=== PATIENT | female | born 1995 | race Caucasian/White ===

== ENCOUNTER 2019-07-31 15:21 | Emergency (ER) | payer BC, SELFPAY ==
[2019-07-31 15:57] VITALS: BP 117/91; PULSE 82; RESP 20; TEMP 36.6; O2SAT 96
--- NOTE | 2019-07-31 17:08 | ED.GENADULT ---
HPI - General Adult General Chief complaint: Upper Respiratory Infection <Everton Tompkins PA-C - Last Filed: 07/31/19 17:13> Stated complaint: ST,Cough <Everton Tompkins PA-C - Last Filed: 07/31/19 17:13> Time Seen by Provider: 07/31/19 15:41 <Everton Tompkins PA-C - Last Filed: 07/31/19 17:13> Source: patient <Everton Tompkins PA-C - Last Filed: 07/31/19 17:13> Mode of arrival: ambulatory <Everton Tompkins PA-C - Last Filed: 07/31/19 17:13> Limitations: no limitations <Everton Tompkins PA-C - Last Filed: 07/31/19 17:13> History of Present Illness HPI narrative: Patient is a 24-year-old female who presents with 4 to 5 days duration of fever chills body aches noting aching pain throughout with nonproductive cough. Patient notes some emesis and loose stools. Patient notes she is able to tolerate p.o. intake. Patient has been taking [id number] medications with some improvement <Everton Tompkins PA-C - Last Filed: 07/31/19 17:13> Related Data Allergies/adverse reactions: Allergies Allergy/AdvReac Type Severity Reaction Status Date / Time Iodinated Contrast Media Allergy Severe Anaphylaxis Verified 07/31/19 16:05 Latex, Natural Rubber Allergy Severe Hives Verified 07/31/19 16:05 <Everton Tompkins PA-C - Last Filed: 07/31/19 17:13> Review of Systems Review of Systems: All systems reviewed & are unremarkable except as noted in HPI and below <Everton Tompkins PA-C - Last Filed: 07/31/19 17:13> PMFSH Past Medical History Medical History: Medical History Ovarian cyst <Everton Tompkins PA-C - Last Filed: 07/31/19 17:13> Social History Social History: Social History (Updated 07/31/19 @ 17:11 by Everton Tompkins PA-C) Substance use type: marijuana Gender identity (if verbalized by the patient): Female <Everton Tompkins PA-C - Last Filed: 07/31/19 17:13> Exam Narrative: Exam Narrative: GENERAL: Well-appearing, well-nourished, and in no acute distress. HEAD: Normocephalic, atraumatic. EYES: PERRLA and EOMI. ENT: Nares clear, no rhinorrhea or epistaxis. Mucous membranes moist. Oropharynx without tonsillar hypertrophy exudate or other lesions. Right TM slightly erythematous nonbulging. Left TM pearly valderrama nonbulging NECK: Supple. No adenopathy or masses. CHEST: Clear to auscultation. No respiratory distress. No wheezes rales or rhonchi HEART: Regular rate and rhythm. No murmur heard. EXTREMITIES: Normal range of motion. No edema. SKIN: Warm, dry, no rash. NEURO: No focal deficits. Alert and oriented x3. Cranial nerves II through XII grossly intact PSYCH: Normal mood and affect. <PARI Gutierrez Last Filed: 07/31/19 17:13> Course Course Emergency Course: Patient in the room in no distress aware of case findings treatment plan and diagnosis <PARI Gutierrez Last Filed: 07/31/19 17:13> Vital Signs Vital signs: Vital Signs Temperature 36.6 C 07/31/19 15:57 Pulse Rate 82 07/31/19 15:57 Respiratory Rate 20 07/31/19 15:57 Blood Pressure 117/91 H 07/31/19 15:57 Pulse Oximetry 96 07/31/19 15:57 Temperature 36.6 C 07/31/19 15:57 Pulse Rate 82 07/31/19 15:57 Respiratory Rate 20 07/31/19 15:57 Blood Pressure 117/91 H 07/31/19 15:57 Pulse Oximetry 96 07/31/19 15:57 <PARI Gutierrez Last Filed: 07/31/19 17:13> Vital Signs Temperature 36.6 C 07/31/19 15:57 Pulse Rate 82 07/31/19 15:57 Respiratory Rate 20 07/31/19 15:57 Blood Pressure 117/91 H 07/31/19 15:57 Pulse Oximetry 96 07/31/19 15:57 Temperature 36.6 C 07/31/19 15:57 Pulse Rate 82 07/31/19 15:57 Respiratory Rate 20 07/31/19 15:57 Blood Pressure 117/91 H 07/31/19 15:57 Pulse Oximetry 96 07/31/19 15:57 <Yelena Bee MD - Last Filed: 07/31/19 17:48> Medical Decision Making MDM Narrative Medical decis
== END 2019-07-31 17:18 | disposition home or self-care (01) ==
PROVIDERS: Emergency Provider Emergency Medicine
DX: J10.1 Influenza due to other identified influenza virus with other respiratory manifestations (principal)
CPT/HCPCS: 87804; 99283

== ENCOUNTER 2021-05-11 13:10 | Observation (INO) | payer BC, MEDICAID, SELFPAY ==
[2021-05-11] VITALS (33 sets, daily range): BP systolic 113; BP diastolic 59; PULSE 67–146; TEMP 36.6; O2SAT 91–100; BMI 26.7
--- NOTE | ~2021-05-11 | US_ITS ---
EXAMINATION: 1. US OB limited 2. US OB transvaginal DATE: 05/12/2021 08:59 INDICATION: labor. TECHNIQUE: Real-time ultrasound of the pelvis was performed. COMPARISON: None. FINDINGS: There is a single fetus in vertex presentation. The placenta is right posterior. heart rate is 137 beats per minute (bpm). The amniotic fluid volume is subjectively normal. The cervical length is 2.5 cm on transvaginal images. No funneling. IMPRESSION: 1. Single living fetus in vertex presentation. 2. Cervical length of 2.5 cm, which is normal. Reviewed, dictated and finalized at location A. O TECH IMPRESSION: 1. Single living fetus in vertex presentation. 2. Cervical length of 2.5 cm, which is normal.
--- NOTE | 2021-05-11 10:45 | OBADM ---
This patient, Janet Pham, admitted to the OB room OB Post 113 for observation. Patient/family oriented to hospital policies and general routines including ID bracelet, bed and alarms, visiting hours, pain management, procedures, bathroom and other care routines, personal items, smoking policy, room service/diet, and visiting hours. Patient/Family are encouraged to report perceived risks to care and to ask questions if they do not understand what they are told or what they should do.
[2021-05-11] MEDS: TERBUTALINE SULFATE 1 MG/ML VIAL 0.25 MG SUB-Q ×2 (13:30→14:56)
[2021-05-11] MEDS: BETAMETHASONE SOD PHOS/ACETATE 30 MG/5 ML VIAL 12 MG IM (14:55)
[2021-05-11] MEDS: NIFEdipine 10 MG CAPSULE 20 MG PO (17:13)
[2021-05-11] MEDS: ACETAMINOPHEN 500 MG TABLET 1000 MG PO (17:23)
--- NOTE | 2021-05-11 21:02 | PM.IMHP ---
H&P: HPI History of Present Illness Date/Time: 05/11/21 21:02 Chief Complaint: labor Narrative: 26 yo at 34w6d who presents with contractions. Pt states she started having contractions early this morning. She states they persisted all day. She denies any change in pelvic pressure, vaginal bleeding or leakage of fluid. She endorses good movement. Review of Systems Cardiovascular: Cardiovascular: Denies chest pain, Denies leg edema, Denies palpitations, Denies dyspnea and Denies dyspnea on exertion Respiratory: Respiratory: Denies cough, Denies dyspnea and Denies dyspnea on exertion Gastrointestinal: Gastrointestinal: Denies abdominal pain, Denies constipation, Denies diarrhea, Denies nausea and Denies vomiting Genitourinary: Genitourinary: Denies hematuria, Denies urinary frequency, Denies dysuria, Denies pelvic pain, Denies urinary incontinence and Denies vaginal discharge Neurologic: Reports system reviewed and no additional complaints, except as documented Psychiatric: Psychiatric: Reports no additional psychiatric complaints Endocrine: Endocrine: Denies palpitations PMFSH Past Medical History Medical History (Updated 05/12/21 @ 10:41 by Lobito Davey MD) Ovarian cyst Social History Social History (Updated 07/31/19 @ 17:11 by Everton Tompkins PA-C) Substance use type: marijuana Gender identity (if verbalized by the patient): Female Meds Home Medications and Allergies Home Medications Medication Instructions Recorded Confirmed Type acetaminophen [Tylenol Extra 500 mg PO Q6H PRN #30 tablet 06/14/19 Rx Strength] hydrocodone-acetaminophen [[place]] 1 tablet PO Q8H PRN #14 tablet 06/14/19 Rx ibuprofen 600 mg PO Q6H PRN #30 tablet 06/14/19 Rx ondansetron 4 mg PO Q6H PRN #7 tablet 07/31/19 Rx nifedipine 20 mg PO Q6H PRN #60 cap 05/12/21 Rx Allergies Allergy/AdvReac Type Severity Reaction Status Date / Time Iodinated Contrast Media Allergy Severe Anaphylaxis Verified 07/31/19 16:05 Latex, Natural Rubber Allergy Severe Hives Verified 07/31/19 16:05 Vital Signs Vital Signs - 24 hr 05/11/21 14:40 05/11/21 14:45 05/11/21 14:50 Pulse Oximetry 100 100 100 05/11/21 14:55 05/11/21 15:00 05/11/21 15:02 Pulse Oximetry 100 100 100 05/11/21 15:07 05/11/21 15:12 05/11/21 15:17 Pulse Oximetry 100 100 100 05/11/21 15:20 05/11/21 15:24 05/11/21 15:25 Pulse Oximetry 94 100 91 05/11/21 15:30 05/11/21 15:35 05/11/21 15:40 Pulse Oximetry 100 100 100 05/11/21 15:45 05/11/21 15:50 05/11/21 15:55 Pulse Oximetry 100 100 100 05/11/21 16:00 05/11/21 16:05 05/11/21 16:10 Pulse Oximetry 100 100 100 05/11/21 16:15 05/11/21 16:20 05/11/21 16:25 Pulse Oximetry 100 100 100 05/11/21 16:30 05/11/21 16:35 05/11/21 16:40 Pulse Oximetry 99 100 100 05/11/21 16:45 05/11/21 16:50 05/11/21 16:55 Pulse Oximetry 99 100 100 05/11/21 17:00 Pulse Oximetry 100 Exam Const: General: no acute distress Eyes: EOM: EOMs intact bilaterally Neck: Neck: supple Thyroid: thyroid normal Chest: Breast/axilla inspection: normal inspection of the breasts Breast/axilla palpation: normal palpation of the breasts, normal palpation of the axillae and no axillary lymphadenopathy Resp: Effort & Inspection: normal respiratory effort Auscultation: clear to auscultation bilaterally Cardio: Rate: regular rate Rhythm: regular rhythm GI: Inspection: non-distended and other (Gravid) GI Palp: Yes Soft to palpation, No Tenderness to palpation present (GI) and No Guarding due to palpation present (GI) Auscultation: normal bowel sounds : General: Yes bladder normal to palpation External Female Exam: normal external appearance OB/external & speculum: external exam normal; no bleeding, no and vaginal bleeding Manual OB Exam: dilated 1 cm Skin: General skin exam: normal color and no rashes or lesions noted Neuro: Cognition (Neuro): normal
[2021-05-12] MEDS: NIFEdipine 10 MG CAPSULE 20 MG PO ×2 (08:06→11:34)
[2021-05-12 08:08] VITALS: BP 116/64; PULSE 59
[2021-05-12] MEDS: ACETAMINOPHEN 500 MG TABLET 1000 MG PO (09:43)
[2021-05-12] MEDS: TERBUTALINE SULFATE 1 MG/ML VIAL 0.25 MG SUB-Q (10:20)
--- NOTE | 2021-05-12 11:00 | PM.OBDSVD ---
DS: Admitting Diagnosis Discharge Date 05/12/21 Admitting Diagnosis labor OB - DS: Summary Time Spent with Patient Time attestation: Total time spent providing and/or coordinating discharge services: Exam Const: General: no acute distress Eyes: EOM: EOMs intact bilaterally Neck: Neck: supple Thyroid: thyroid normal Chest: Breast/axilla inspection: normal inspection of the breasts Breast/axilla palpation: normal palpation of the breasts, normal palpation of the axillae and no axillary lymphadenopathy Resp: Effort & Inspection: normal respiratory effort Auscultation: clear to auscultation bilaterally Cardio: Rate: regular rate Rhythm: regular rhythm GI: Inspection: non-distended GI Palp: Yes Soft to palpation, No Tenderness to palpation present (GI) and No Guarding due to palpation present (GI) Auscultation: normal bowel sounds : OB/external & speculum: external exam normal; no bleeding and vaginal bleeding Manual OB Exam: dilated 1 cm Skin: General skin exam: normal color and no rashes or lesions noted Neuro: Cognition (Neuro): normal cognition Speech: normal speech Extrem: General: normal to inspection and no edema Psych: Mental Status: mental status grossly normal Affect: normal affect Discharge Plan Discharge Discharging Clinician: Lobito Davey Anticipated Discharge Date/Time: 05/12/21 11:02 Patient Disposition: Home, Self-Care Activity: as tolerated and pelvic rest Diet: regular Patient Instructions: Antibiotic Form, Labor (ED), Labor (DC) Stand Alone Forms: General Discharge Information Follow-up/Referrals: Lobito Davey MD [Physician] - 1 Week Discharge Medications: New nifedipine 20 mg Capsule 20 mg PO Q6H PRN (Reason: Cramps) Qty: 60 RF: 0 No Action hydrocodone-acetaminophen [[place]] 5-325 mg tablet 1 tablet PO Q8H PRN (Reason: pain) Qty: 14 RF: 0 acetaminophen [Tylenol Extra Strength] 500 mg tablet 500 mg PO Q6H PRN (Reason: pain) Qty: 30 RF: 0 ibuprofen 600 mg tablet 600 mg PO Q6H PRN (Reason: pain) Qty: 30 RF: 0 ondansetron 4 mg tablet,disintegrating 4 mg PO Q6H PRN (Reason: nausea and vomiting) Qty: 7 RF: 0 Date of admission: 05/11/21 13:10 Primary Care Provider: PHYSICIAN,INSURANCE SPECIALIST Admitting Provider: Lobito Davey Attending physician on admission: Lobito Davey
--- NOTE | 2021-05-12 11:03 | PM.DS ---
DS: Admitting Diagnosis Discharge Date 05/12/21 Admitting Diagnosis Labor DS: Summary Hospital Course Reason for hospitalization: labor Hospital Course: 26 yo G1 at 35w6d presented for labor. Pt was having regular contractions. Cvx found to be 1 cm dilated. Pt received terbutaline x 2 and started on procardia PRN for tocolysis. Pt received BTMS for lung maturity. Pt remained stable overnight and states her contractions improved. pelvic US was performed and CL was found to be 2.5 cm. Time Spent with Patient Time attestation: Total time spent providing and/or coordinating discharge services: Time spent: Less than 30 minutes Exam Const: General: no acute distress Eyes: EOM: EOMs intact bilaterally Neck: Neck: supple Thyroid: thyroid normal Chest: Breast/axilla inspection: normal inspection of the breasts Breast/axilla palpation: normal palpation of the breasts, normal palpation of the axillae and no axillary lymphadenopathy Resp: Effort & Inspection: normal respiratory effort Auscultation: clear to auscultation bilaterally Cardio: Rate: regular rate Rhythm: regular rhythm GI: Inspection: non-distended GI Palp: Yes Soft to palpation, No Tenderness to palpation present (GI) and No Guarding due to palpation present (GI) Auscultation: normal bowel sounds : OB/external & speculum: external exam normal; No vaginal bleeding Manual OB Exam: dilated 1 cm Skin: General skin exam: normal color and no rashes or lesions noted Neuro: Cognition (Neuro): normal cognition Speech: normal speech Extrem: General: normal to inspection and no edema Psych: Mental Status: mental status grossly normal Affect: normal affect Discharge Plan Discharge Discharging Clinician: Lobito Davey Anticipated Discharge Date/Time: 05/12/21 11:02 Patient Disposition: Home, Self-Care Activity: as tolerated and pelvic rest Diet: regular Patient Instructions: Antibiotic Form, Labor (ED), Labor (DC) Stand Alone Forms: General Discharge Information Follow-up/Referrals: Lobito Davey MD [Physician] - 1 Week Discharge Medications: New nifedipine 20 mg Capsule 20 mg PO Q6H PRN (Reason: Cramps) Qty: 60 RF: 0 Continued acetaminophen [Tylenol Extra Strength] 500 mg tablet 500 mg PO Q6H PRN (Reason: pain) Qty: 30 RF: 0 ibuprofen 600 mg tablet 600 mg PO Q6H PRN (Reason: pain) Qty: 30 RF: 0 ondansetron 4 mg tablet,disintegrating 4 mg PO Q6H PRN (Reason: nausea and vomiting) Qty: 7 RF: 0 Discontinued hydrocodone-acetaminophen [[place]] 5-325 mg tablet 1 tablet PO Q8H PRN (Reason: pain) Qty: 14 RF: 0 Date of admission: 05/11/21 13:10 Primary Care Provider: PHYSICIAN,PRODUCT DEVELOPMENT WORKER Admitting Provider: Lobito Davey Attending physician on admission: Lobito Davey Condition: Stable
[2021-05-12] MEDS: FLUCONAZOLE 150 MG TABLET PO (12:02)
[2021-05-12] MEDS: BETAMETHASONE SOD PHOS/ACETATE 30 MG/5 ML VIAL 12 MG IM (14:31)
== END 2021-05-12 14:32 | disposition home or self-care (01) ==
PROVIDERS: Admitting Provider Student in an Organized Health Care Education/Training Program; Visit Provider Student in an Organized Health Care Education/Training Program
DX: O60.03 Preterm labor without delivery, third trimester (principal); Z3A.34 34 weeks gestation of pregnancy
CPT/HCPCS: 76815; 76817; 96372; A9270; G0378; G0379; J0702; J3105

== ENCOUNTER 2021-05-15 22:51 | Observation (INO) | payer BC, SELFPAY ==
[2021-05-15 23:06] VITALS: BP 116/69; PULSE 92
[2021-05-15 23:15] VITALS: BP 120/69; PULSE 93
[2021-05-15 23:30] VITALS: BP 121/66; PULSE 87
[2021-05-15 23:46] VITALS: BP 138/89; PULSE 85
[2021-05-16 00:01] VITALS: BP 104/75; PULSE 83
[2021-05-16 00:16] VITALS: BP 121/70; PULSE 94
[2021-05-16 00:31] VITALS: BP 126/62; PULSE 88
[2021-05-16 00:46] VITALS: BP 125/70; PULSE 86
[2021-05-16 02:01] VITALS: BMI 27.3
--- NOTE | 2021-05-16 02:02 | OBADM ---
This patient, Janet Pham, admitted to the OB room Labor/Delivery/Recovery 105 for observation. Patient/family oriented to hospital policies and general routines including ID bracelet, bed and alarms, visiting hours, pain management, procedures, bathroom and other care routines, personal items, smoking policy, room service/diet, and visiting hours. Patient/Family are encouraged to report perceived risks to care and to ask questions if they do not understand what they are told or what they should do.
--- NOTE | 2021-06-03 16:59 | PM.OBTRLD ---
OB - Triage/Final Diagnosis Visit Information Comments/Additional reasons for admission: I have assessed the risk for this patient, Janet Pham, and determined that she would benefit from observation care. Final Diagnosis (1) False labor: Code(s): O47.9 - False labor, unspecified Status: Acute
== END 2021-05-16 01:55 | disposition home or self-care (01) ==
PROVIDERS: Admitting Provider Obstetrics & Gynecology; Visit Provider Obstetrics & Gynecology
DX: O47.03 False labor before 37 completed weeks of gestation, third trimester (principal); Z3A.35 35 weeks gestation of pregnancy
CPT/HCPCS: G0378; G0379

== ENCOUNTER 2021-06-08 11:00 | Outpatient (RCR) | payer BC, SELFPAY ==
[2021-05-18 13:02] VITALS: BP 113/87; PULSE 69
[2021-05-21 12:04] VITALS: BP 118/69; PULSE 78
[2021-05-25 15:14] VITALS: BP 123/73; PULSE 85
[2021-06-01 12:02] VITALS: BP 120/55; PULSE 59
[2021-06-04 11:46] VITALS: BP 115/69; PULSE 70
[2021-06-08 12:03] VITALS: BP 121/62; PULSE 64
== END 2021-07-03 20:34 | disposition home or self-care (01) ==
LOC: ANHOBOP 11:00
PROVIDERS: Visit Provider Student in an Organized Health Care Education/Training Program
DX: O36.5930 Maternal care for other known or suspected poor fetal growth, third trimester, not applicable or unspecified (principal); Z3A.35 35 weeks gestation of pregnancy; Z3A.36 36 weeks gestation of pregnancy; Z3A.37 37 weeks gestation of pregnancy; Z3A.38 38 weeks gestation of pregnancy
CPT/HCPCS: 59025

== ENCOUNTER 2021-06-10 18:38 | Inpatient (IN) | payer BC, MEDICAID, SELFPAY ==
[2021-06-10] VITALS (13 sets, daily range): BP systolic 107–125; BP diastolic 58–82; PULSE 57–83; TEMP 36.8; BMI 26.2
--- NOTE | 2021-06-10 19:12 | LDADM ---
This patient, Janet Pham, was admitted to Labor/Delivery/Recovery 107 on 06/10/21 at 18:38. Plans for labor, pain management and were discussed with patient. Patient/family oriented to hospital policies and general routines including ID bracelet, bed and alarms, visiting hours, pain management, procedures, bathroom and other care routines, personal items, smoking policy, room service/diet and guest tray routines, security routines, and visiting hours. Patient/Family are encouraged to report perceived risks to care and to ask questions if they do not understand what they are told or what they should do. See OBIX for further documentation.
[2021-06-10] MEDS: DINOPROSTONE 10 MG VAG INSERT VAGINAL (20:01)
[2021-06-10 20:05] LABS: Basophils Percent Auto 0.3 % (0.2-1.2); Eosinophils Absolute Auto 0.1 K/mm3 (0-0.3); Hematocrit 33.5 % (37.0-47.0); Hemoglobin 11.4 g/dL (12.0-15.0); Immature Granulocyte Absolute 0.04 K/mm3 (0.00-0.031); Immature Granulocyte Percent A 0.4 % (0-0.5); Lymphocytes Absolute Auto 2.25 K/mm3 (0.9-3.2); Lymphocytes Percent Auto 24.5 % (18.3-44.2); Mean Corpuscular Hemoglobin 29.5 pg (26-34); Mean Corpuscular Volume 86.8 fl (80-100); Mean Platelet Volume 11.6 fl (7.4-10.4); Monocytes Absolute Auto 0.4 K/mm3 (0.1-0.6); Monocytes Percent Auto 4.8 % (2.6-8.5); Neutrophils Absolute Auto 6.3 K/mm3 (1.3-6.7); Platelet Count Result 232 k/mm3 (150-375); Red Blood Count 3.86 M/mm3 (4.2-5.4); Red Cell Distribution Width 12.6 % (11.5-14.5); White Blood Count 9.2 K/mm3 (4.5-10.0)
--- NOTE | 2021-06-10 22:32 | WPDANESEPP ---
Anes - Eval Pre Procedure Procedure: labor epidural Date/Time: 06/10/21 22:32 Surgeon: moira Pre Op Diagnosis: IOL Patient Data Age: 26 Gender: F Height: 1.6 m Weight: 67.1 kg Last Vital Signs Pulse 63 06/10/21 22:16 BP 113/73 06/10/21 22:16 Allergies Allergy/AdvReac Type Severity Reaction Status Date / Time Iodinated Contrast Media Allergy Severe Anaphylaxis Verified 07/31/19 16:05 Latex, Natural Rubber Allergy Severe Hives Verified 07/31/19 16:05 Home Medications Medication Instructions Recorded Confirmed Type acetaminophen [Tylenol Extra 500 mg PO Q6H PRN #30 tablet 06/14/19 05/21/21 Rx Strength] ondansetron 4 mg PO Q6H PRN #7 tablet 07/31/19 06/10/21 Rx PNV cmb#95-ferrous fumarate-FA 1 tablet PO DAILY 05/21/21 05/21/21 History [] Laboratory Tests 06/10/21 06/10/21 06/10/21 19:58 19:58 19:58 WBC 9.2 K/mm3 K/mm3 (4.5-10.0) RBC 3.86 M/mm3 L M/mm3 (4.2-5.4) Hgb 11.4 g/dL L g/dL (12.0-15.0) Hct 33.5 % L % (37.0-47.0) MCV 86.8 fl fl (80-100) MCH 29.5 pg pg (26-34) MCHC 34.0 g/dl g/dl (32-36) RDW 12.6 % % (11.5-14.5) Plt Count 232 k/mm3 k/mm3 (150-375) MPV 11.6 fl H fl (7.4-10.4) Immature Gran % (Auto) 0.4 % % (0-0.5) Neut % (Auto) 69.0 % % (45.5-73.1) Lymph % (Auto) 24.5 % % (18.3-44.2) [place] % (Auto) 4.8 % % (2.6-8.5) Eos % (Auto) 1.0 % % (0-4.4) Baso % (Auto) 0.3 % % (0.2-1.2) Lymph # (Auto) 2.25 K/mm3 K/mm3 (0.9-3.2) [place] # (Auto) 0.4 K/mm3 K/mm3 (0.1-0.6) Eos # (Auto) 0.1 K/mm3 K/mm3 (0-0.3) Baso # (Auto) 0.0 K/mm3 K/mm3 (0.0-0.1) Abs Immat Gran (auto) 0.04 K/mm3 H K/mm3 (0.00-0.031) Absolute Neuts (auto) 6.3 K/mm3 K/mm3 (1.3-6.7) Absolute Nucleated RBC 0.0 K/mm3 K/mm3 (0.0-0.012) Nucleated RBC % 0.0 % % (0.0-0.2) RPR Pending Blood Type A Positive Antibody Screen Negative Patient hx anesthesia problems: none Family hx anesthesia problems: none Results Review: All pre-operative results and documents have been reviewed as part of the pre-operative evaluation. [facility] Past Medical History Medical History (Updated 06/03/21 @ 16:59 by Tanner Castro MD) Ovarian cyst Family History Family History (Updated 05/25/21 @ 14:46 by Jesús Mathew RN) Sibling Deafness in left ear Grandparent High cholesterol Heart disease Hypertension Diabetes mellitus Social History Social History (Updated 07/31/19 @ 17:11 by Everton Tompkins PA-C) Smoking status: Never smoker Substance use: never Substance use type: marijuana Gender identity (if verbalized by the patient): Female Spiritual care concerns: No Exam Day of Procedure 06/10/21 22:32
[2021-06-11] VITALS (91 sets, daily range): BP systolic 95–150; BP diastolic 49–91; PULSE 53–173; RESP 16–18; TEMP 36.6–37.3; O2SAT 75–100
[2021-06-11 06:32] LABS: Rapid Plasma Reagin Non-Reactive (NonReactive)
[2021-06-11 06:59] LABS: Amphetamine Screen Urine Negative (Negative); Barbiturate Screen Urine Negative (Negative); Benzodiazepines Screen Urine Negative (Negative); Cannabinoid Screen Urine Negative (Negative); Cocaine Screen Urine Negative (Negative); Methadone Screen Urine Negative (Negative); Opiate Screen Urine Negative (Negative); Phencyclidine Screen Urine Negative (Negative)
[2021-06-11] MEDS: ONDANSETRON INJ 4 MG/2 ML VIAL IV PUSH (07:04)
[2021-06-11] MEDS: LACTATED RINGERS 1,000 ML 125 ML IV CONT ×2 (07:39→08:13)
--- NOTE | 2021-06-11 07:42 | PM.IMHP ---
H&P: HPI History of Present Illness Date/Time: 06/11/21 07:42 Chief Complaint: Intrauterine at term IUGR Narrative: 26 yo G1 at 39w1d who presents for IOL for IUGR. Pt was noted to have an EFW of 6% at 33w. Interval growth scans showed continued IUGR. The fetus was noted to have normal UA dopplers and testing. Recent US showed EFW of 3%. Decision was made to proceed with IOL. The remainder of her has been uncomplicated. Review of Systems Cardiovascular: Cardiovascular: Denies chest pain, Denies leg edema, Denies palpitations, Denies dyspnea and Denies dyspnea on exertion Respiratory: Respiratory: Denies cough, Denies dyspnea and Denies dyspnea on exertion Gastrointestinal: Gastrointestinal: Denies abdominal pain, Denies constipation, Denies diarrhea, Denies nausea and Denies vomiting Genitourinary: Genitourinary: Denies hematuria, Denies urinary frequency, Denies dysuria, Denies pelvic pain, Denies urinary incontinence and Denies vaginal discharge Neurologic: Reports system reviewed and no additional complaints, except as documented Psychiatric: Psychiatric: Reports no additional psychiatric complaints Endocrine: Endocrine: Denies palpitations PMFSH Past Medical History Medical History (Updated 06/11/21 @ 07:44 by Lobito Davey MD) Ovarian cyst Family History Family History (Updated 05/25/21 @ 14:46 by Jesús Mathew RN) Sibling Deafness in left ear Grandparent High cholesterol Heart disease Hypertension Diabetes mellitus Social History Social History (Updated 07/31/19 @ 17:11 by Everton Tompkins PA-C) Smoking status: Never smoker Substance use: never Substance use type: marijuana Gender identity (if verbalized by the patient): Female Spiritual care concerns: No Meds Home Medications and Allergies Home Medications Medication Instructions Recorded Confirmed Type acetaminophen [Tylenol Extra 500 mg PO Q6H PRN #30 tablet 06/14/19 06/10/21 Rx Strength] ondansetron 4 mg PO Q6H PRN #7 tablet 07/31/19 06/10/21 Rx PNV cmb#95-ferrous fumarate-FA 1 tablet PO DAILY 05/21/21 06/10/21 History [] Allergies Allergy/AdvReac Type Severity Reaction Status Date / Time Iodinated Contrast Media Allergy Severe Anaphylaxis Verified 07/31/19 16:05 Latex, Natural Rubber Allergy Severe Hives Verified 07/31/19 16:05 Vital Signs Vital Signs - 24 hr 06/10/21 19:06 06/10/21 19:16 06/10/21 19:31 Temperature Pulse Rate 60 69 83 Blood Pressure 119/71 116/64 111/71 Pulse Oximetry 06/10/21 20:00 06/10/21 20:16 06/10/21 20:31 Temperature 36.8 C Pulse Rate 57 L 62 Blood Pressure 125/78 123/82 Pulse Oximetry 06/10/21 20:46 06/10/21 21:01 06/10/21 21:16 Temperature Pulse Rate 62 63 71 Blood Pressure 125/79 119/70 107/58 L Pulse Oximetry 06/10/21 21:31 06/10/21 21:46 06/10/21 22:01 Temperature Pulse Rate 74 59 L 60 Blood Pressure 112/73 125/81 116/73 Pulse Oximetry 06/10/21 22:16 06/11/21 02:30 06/11/21 02:35 Temperature Pulse Rate 63 62 Blood Pressure 113/73 111/80 Pulse Oximetry 98 98 06/11/21 02:40 06/11/21 02:45 06/11/21 02:50 Temperature Pulse Rate Blood Pressure Pulse Oximetry 98 100 99 06/11/21 02:55 06/11/21 02:59 06/11/21 03:01 Temperature Pulse Rate 55 L Blood Pressure 103/54 L Pulse Oximetry 99 98 06/11/21 03:04 06/11/21 03:09 06/11/21 03:14 Temperature Pulse Rate Blood Pressure Pulse Oximetry 99 99 99 06/11/21 03:19 06/11/21 03:24 06/11/21 03:29 Temperature Pulse Rate Blood Pressure Pulse Oximetry 99 99 99 06/11/21 03:31 06/11/21 03:34 06/11/21 03:39 Temperature Pulse Rate 59 L Blood Pressure 114/51 L Pulse Oximetry 99 99 06/11/21 03:44 06/11/21 03:49 06/11/21 03:54 Temperature Pulse Rate Blood Pressure Pulse Oximetry 99 100 99 06/11/21 04:38 06/11/21 05:01 06/11/21 05:31 [place]
[2021-06-11] MEDS: OXYTOCIN 30 UNITS/NS 500 ML 30 UNITS/500 ML BAG 125 UNITS IV CONT ×2 (09:06→11:37)
--- NOTE | 2021-06-11 11:12 | PM.OBPRVD ---
OB - Delivery Note Procedure Procedure: Patient pushed for a spontaneous vaginal delivery. Fetus was noted to have a nuchal x1 that was delivered through. The fetus was delivered atraumatically and placed on the maternal abdomen. The cord was clamped and cut after 1 minute of life. The cord was double clamped and cut and a segment of cord was collected for cord gases. Cord blood was collected for blood type and Coomb's testing. The placenta delivered spontaneously and was noted to be intact. The perineum was inspected and there was a small right sided vaginal laceration. The laceration was repaired with 3-0 vicryl with a single interrupted stitch. The uterus was firm and good hemostasis was noted. The patient and fetus were stable in the delivery room. events: Labor Induction (for IUGR) Intrapartal events: None Induction method: per misoprostol protocol Delivery augmentation: rupture of membranes and pitocin Delivery monitor: external FHT Route of delivery: Episiotomy description: None Laceration Description: Vaginal - 1st Degree Delivery repair: vicryl Specimen: No Quantitative Blood Loss (ml): 200 Anesthesia type: Epidural Disposition: floor () Complications: No immediate complications Baby Date of : 06/11/[birth year] Time of : 11:02 Weeks of gestation at delivery: 39 Infant gender: Male Weight (pounds): 6 Weight (ounces): 7 presentation: vertex position: Right Occiput Anterior Placenta delivery description: Spontaneous cord vessel description: 3 Vessels and Nuchal Cord score one minute: 8 score five minutes: 9
[2021-06-11] MEDS: IBUPROFEN 600 MG TABLET PO ×2 (14:12→20:15)
[2021-06-11] MEDS: WITCH HAZEL 40 PADS 1 PAD TOPICAL (14:13)
[2021-06-11] MEDS: BENZOCAINE 20% AER SPR (*SP) 56 GM CAN 1 SPRAY TOPICAL (14:13)
--- NOTE | 2021-06-11 14:27 | PC.NURSE ---
Patient transferred to post room #282 via wheel chair. Support person present. Oriented to unit, room, information board, rooming in, admission packet and security measures. Patient verbalizes understanding.
[2021-06-11] MEDS: ACETAMINOPHEN 325 MG TABLET 650 MG PO (20:15)
[2021-06-12] MEDS: ACETAMINOPHEN 325 MG TABLET 650 MG PO ×2 (02:02→08:27)
[2021-06-12] MEDS: IBUPROFEN 600 MG TABLET PO ×2 (02:02→08:28)
[2021-06-12 04:10] VITALS: BP 120/74; PULSE 62; RESP 16; TEMP 36.7; O2SAT 100
[2021-06-12 04:28] LABS: Hematocrit 29.4 % (37.0-47.0); Hemoglobin 9.7 g/dL (12.0-15.0)
[2021-06-12 07:30] VITALS: BP 109/70; PULSE 62; RESP 16; TEMP 36.9; O2SAT 100
--- NOTE | 2021-06-12 07:43 | PM.OBDSVD ---
DS: Admitting Diagnosis Discharge Date 06/12/21 Admitting Diagnosis intrauterine at term intrauterine growth restriction OB - DS: Summary OB Procedures : None OB Procedures Intrapartum: Spontaneous Vag Delivery OB Procedures: : None Status at Discharge Functional status at discharge: independent ambulation Overall status at discharge: patient is back to baseline Time Spent with Patient Time attestation: Total time spent providing and/or coordinating discharge services: Time spent: Less than 30 minutes Exam Const: General: comfortable and no acute distress Resp: Effort & Inspection: normal respiratory effort Auscultation: clear to auscultation bilaterally Cardio: Rate: regular rate GI: GI Palp: Yes Soft to palpation Auscultation: normal bowel sounds Other: Fundus firm below umbilicus Psych: Appearance: grossly normal Mental Status: mental status grossly normal Affect: normal affect DS: Data Data Completed and Pending Labs on day of discharge: Labs from last 24 hours 06/12/21 04:18 Hgb 9.7 L Hct 29.4 L Discharge Plan Discharge Discharging Clinician: Lobito Davey Patient Disposition: Home, Self-Care Activity: as tolerated and pelvic rest Diet: as tolerated Patient Instructions: Antibiotic Form, Vaginal Delivery (DC) Stand Alone Forms: General Discharge Information Follow-up/Referrals: Lobito Davey MD [Physician] - 4 Weeks Discharge Medications: New polysaccharide iron complex 150 mg iron Capsule 150 mg PO BIDWM Qty: 60 RF: 0 acetaminophen [Mapap (acetaminophen)] 325 mg Tablet 650 mg PO Q6H PRN (Reason: Mild Pain (1-3) Or Headache) Qty: 30 RF: 0 ibuprofen 600 mg Tablet 600 mg PO Q6H PRN (Reason: Cramping) Qty: 30 RF: 0 Continued acetaminophen [Tylenol Extra Strength] 500 mg tablet 500 mg PO Q6H PRN (Reason: pain) Qty: 30 RF: 0 ondansetron 4 mg tablet,disintegrating 4 mg PO Q6H PRN (Reason: nausea and vomiting) Qty: 7 RF: 0 PNV [id number] fumarate-FA [] 28 mg iron- 800 mcg Tablet 1 tablet PO DAILY RF: 0 Date of admission: 06/10/21 18:38 Primary Care Provider: PHYSICIAN,ACUTE CARE PHYSICAL THERAPIST Admitting Provider: Lobito Davey Attending physician on admission: Lobito Davey Condition: Stable
--- NOTE | 2021-06-12 07:58 | PC.NURSE ---
06/11/2021 at 1545 - Consulted with patient, reviewed feeding cues, frequencies, duration of feedings, feeding elimination flow sheet, and signs of adequate intake. Demonstrated stimulation techniques to wake for feeding. Assisted with to breast and skin to skin. Reviewed positioning/alignment, holding breast and asymmetrical latch on using visual handout. was unable to latch correctly due to not gaping wide, quiet, alert, awake and not showing a lot of feeding cues. Reviewed hand expression with handout, mother demonstrated knowledge and placed colostrum inside infants mouth. Mom is confident and demonstrates effective holding and moving Nipple care reviewed. Discussed the early feeding signs and how they will present, then initiate skin to skin and prepare to breastfeed about every two -three hours from start of last feeding or if feeding cues are seen to feed when the baby is ready. Opened mom and baby care guide for resource. Instructed mother to call out for RN assistance if she is unable to latch infant for feeding or she has discomfort with nursing Mother voiced understanding of information shared. Reported to primary RN.
[2021-06-12 08:00] VITALS: PULSE 62; RESP 16; O2SAT 100
[2021-06-12] MEDS: POLYSACCHARIDE IRON COMPLEX 150 MG CAPSULE PO (08:27)
[2021-06-12] MEDS: DOCUSATE SODIUM 100 MG CAPSULE PO (08:27)
[2021-06-12] MEDS: MULTIVIT/MIN/PREN/FOL AC/IRON TABLET 1 TAB PO (08:27)
--- NOTE | 2021-06-12 09:29 | PC.NURSE ---
0825 - Consulted with patient with skin to skin on mother. Reviewed feeding cues, frequencies, duration of feedings, feeding elimination flow sheet, and signs of adequate intake. Demonstrated stimulation techniques to wake for feeding. Reviewed positioning/alignment (ear, shoulders, hips) nipple to nose and asymmetrical latch on in a cross cradle position. Infant was unable to latch correctly after many attempts. Reviewed hand expression. Mom demonstrated hand expression and dripping colostrum was place in infants mouth. Infant was able to latch on the left breast for 5 min eagerly, with steady draws and frequent swallowing noted. Reviewed signs of a correct latch, effective nursing, how to hear and visualize swallowing and suck swallow ratio. Infant was able to maintain latch without discomfort to mother, then mother was uncertain if there was pain or not due to the tender nipple from nursing with ineffective latch last night. Nipple care reviewed. Instructed mother to call out for RN assistance if she is unable to latch infant for feeding or she has discomfort with nursing. was placed skin to skin at 0915 with one hand fisted, right hand relaxed and skin to skin with mother. Mother verbalized understanding to call out when feeding cues are observed or every 2-3 hours if unable to latch without pain. Mother voiced understanding of information shared. Reported to primary RN.
--- NOTE | 2021-06-12 10:55 | WPDANLDPN2 ---
Anes-Prog Note L&D Date/Time: 06/12/21 10:55 Comfortable throughout: labor and delivery Neuraxial method: epidural Epidural/Spinal procedure site: clean & non-tender Neuro status: Neuro function grossly intact. Cardiovascular status: normal Respiratory status: normal Airway patency: baseline Mental status: baseline Post-Op hydration status: normal Vital Signs: Last Vital Signs Temp 36.9 C 06/12/21 07:30 Pulse 62 06/12/21 08:00 Resp 16 06/12/21 08:00 BP 109/70 06/12/21 07:30 Pulse Ox 100 06/12/21 08:00 Pain score (VAS): 0 I/O: Intake & Output 06/11/21 06/12/21 06/12/21 23:59 07:59 15:59 Intake Total 450 Balance 450 Post-procedural complaints: none Patient feedback: Patient satisfied with anesthetic care.
--- NOTE | 2021-06-12 11:25 | PC.NURSE ---
Patient viewed the discharge video Mother & Baby Care, The First Two Weeks . Patient was given the opportunity and encouraged to ask questions. Patient verbalized understanding of information shared and has been given the mother/baby guide for home reference.
--- NOTE | 2021-06-12 14:33 | PC.NURSE ---
7158 - Consulted with patient, reviewed infant feeding cues, frequencies, duration of feedings, feeding elimination flow sheet, and signs of adequate intake. Reviewed mom and baby guide for a resource. Demonstrated stimulation techniques to wake for feeding. Assisted with infant to skin to skin, then to the breast. Reviewed positioning/alignment, relaxing breast and asymmetrical latch on with assistance of latching handout. was unable to latch correctly related to not wide open mouth gaping and sleepy. Reviewed signs of a correct latch, effective nursing and suck swallow ratio. was unable to maintain latch without discomfort to mother. Nipple care reviewed. Hand expression handout reviewed and mother demonstrated understanding of hand expression, nipple stroking and nipple stretching placing expressed colostrum into infants mouth multiple times. Instructed mother to call out for RN assistance if she is unable to effectively latch infant for feeding or if she has discomfort with nursing. Reviewed feeding approximately every two to three hours from start of last feeding or when feeding cues are visualized. Mother voiced understanding of information shared. Reported to primary RN.
[2021-06-15 11:44] VITALS: BP 123/80; PULSE 96; RESP 20; TEMP 37.3; O2SAT 99
== END 2021-06-12 15:12 | disposition home or self-care (01) | DRG 807 ==
LOC: ANHLDR 18:54 → ANHOB2 06-11 15:46
PROVIDERS: Admitting Provider Student in an Organized Health Care Education/Training Program; Visit Provider Student in an Organized Health Care Education/Training Program
DX: O36.5930 Maternal care for other known or suspected poor fetal growth, third trimester, not applicable or unspecified (principal); Z37.0 Single live birth; O69.81X0 Labor and delivery complicated by cord around neck, without compression, not applicable or unspecified; O70.0 First degree perineal laceration during delivery; O62.3 Precipitate labor; Z3A.39 39 weeks gestation of pregnancy
CPT/HCPCS: 36415; 80307; 85014; 85018; 85025; 86592; 86850; 86900; 86901; 88307; A9270; J2405; J2590; J2795; J7120

== ENCOUNTER 2022-11-24 12:55 | Outpatient (RCR) | payer BC, MEDICAID, SELFPAY ==
[2022-11-24 13:29] LABS: Basophils Absolute Auto 0.1 K/mm3 (0.0-0.1); Basophils Percent Auto 0.6 % (0.2-1.2); Eosinophils Absolute Auto 0.1 K/mm3 (0-0.3); Eosinophils Percent Auto 1.5 % (0-4.4); Hematocrit 38.9 % (37.0-47.0); Hemoglobin 12.9 g/dL (12.0-15.0); Immature Granulocyte Absolute 0.02 K/mm3 (0.00-0.031); Immature Granulocyte Percent A 0.2 % (0-0.5); Lymphocytes Absolute Auto 1.82 K/mm3 (0.9-3.2); Mean Corpuscular HGB Conc 33.2 g/dl (32-36); Mean Corpuscular Hemoglobin 29.3 pg (26-34); Mean Corpuscular Volume 88.2 fl (80-100); Mean Platelet Volume 10.5 fl (7.4-10.4); Monocytes Absolute Auto 0.4 K/mm3 (0.1-0.6); Monocytes Percent Auto 4.8 % (2.6-8.5); Neutrophils Absolute Auto 6.2 K/mm3 (1.3-6.7); Neutrophils Percent Auto 71.9 % (45.5-73.1); Platelet Count Result 285 k/mm3 (150-375); Red Blood Count 4.41 M/mm3 (4.2-5.4); Red Cell Distribution Width 13.8 % (11.5-14.5); White Blood Count 8.7 K/mm3 (4.5-10.0)
[2022-11-24 14:17] LABS: HIV 1/2 Ab P24 Ag Result Negative (Negative)
[2022-11-24 14:33] LABS: Hepatitis B Surface Antigen Negative (Negative); Rubella IgG Antibody 13.7 IU/ML
[2022-11-25 15:14] LABS: Rapid Plasma Reagin Non-Reactive (NonReactive)
[2022-11-29 08:44] LABS: CMV IgG Antibody <0.60 U/mL (<0.60)
[2022-12-03 18:08] LABS: CF Result NEGATIVE (NEGATIVE); Ethnicity NG
[2022-12-05 11:33] LABS: SMA 2.0 RISK VARIANT NOT DETECTED
[2022-12-10 14:18] LABS: SMA Results Received YES
== END 2023-02-22 23:59 | disposition home or self-care (01) ==
LOC: ANHLAB 12:55
PROVIDERS: Visit Provider Student in an Organized Health Care Education/Training Program
DX: Z11.4 Encounter for screening for human immunodeficiency virus [HIV] (principal); N91.2 Amenorrhea, unspecified
CPT/HCPCS: 36415; 81220; 81329; 84702; 85025; 86592; 86644; 86703; 86747; 86762; 86787; 86850; 86900; 86901; 87086; 87340; G0432

== ENCOUNTER 2023-02-03 12:25 | Outpatient (CLI) | payer BC, MEDICAID, SELFPAY ==
[2023-02-03 13:17] LABS: Basophils Percent Auto 0.4 % (0.2-1.2); Eosinophils Absolute Auto 0.1 K/mm3 (0-0.3); Eosinophils Percent Auto 1.7 % (0-4.4); Hematocrit 33.8 % (37.0-47.0); Hemoglobin 10.9 g/dL (12.0-15.0); Immature Granulocyte Absolute 0.02 K/mm3 (0.00-0.031); Immature Granulocyte Percent A 0.2 % (0-0.5); Lymphocytes Absolute Auto 1.41 K/mm3 (0.9-3.2); Lymphocytes Percent Auto 17.4 % (18.3-44.2); Mean Corpuscular HGB Conc 32.2 g/dl (32-36); Mean Corpuscular Hemoglobin 29.3 pg (26-34); Mean Corpuscular Volume 90.9 fl (80-100); Mean Platelet Volume 10.2 fl (7.4-10.4); Monocytes Absolute Auto 0.3 K/mm3 (0.1-0.6); Monocytes Percent Auto 3.7 % (2.6-8.5); Neutrophils Absolute Auto 6.2 K/mm3 (1.3-6.7); Neutrophils Percent Auto 76.6 % (45.5-73.1); Platelet Count Result 270 k/mm3 (150-375); Red Blood Count 3.72 M/mm3 (4.2-5.4); Red Cell Distribution Width 13.8 % (11.5-14.5); White Blood Count 8.1 K/mm3 (4.5-10.0)
[2023-02-03 13:42] LABS: Alanine Aminotransferase 15 U/L (6-35); Albumin Level 3.6 g/dL (3.5-5.1); Alkaline Phosphatase 55 U/L (38-126); Anion Gap 7 mmol/L (8-16); Aspartate Amino Transferase 23 U/L (14-36); Bilirubin,Total 0.2 mg/dL (0.2-1.3); Blood Urea Nitrogen 7 mg/dL (7-17); Calcium 8.7 mg/dL (8.4-10.2); Carbon Dioxide 27 mmol/L (22-30); Chloride 103 mmol/L (98-107); Estimated Glomerular Filt Rate > 60; Glucose 90 mg/dL (65-110); Lipase 166 U/L (23-300); Potassium 3.8 mmol/L (3.4-5.0); Sodium 137 mmol/L (137-145)
== END 2023-02-03 12:26 | disposition home or self-care (01) ==
PROVIDERS: Visit Provider Student in an Organized Health Care Education/Training Program
DX: O26.899 Other specified pregnancy related conditions, unspecified trimester (principal); R10.9 Unspecified abdominal pain; Z3A.00 Weeks of gestation of pregnancy not specified
CPT/HCPCS: 36415; 80053; 83690; 85025; 87086; 87088

== ENCOUNTER 2023-04-19 10:21 | Outpatient (CLI) | payer MEDICAID, SELFPAY ==
[2023-04-19 12:02] LABS: Basophils Percent Auto 0.3 % (0.2-1.2); Eosinophils Absolute Auto 0.1 K/mm3 (0-0.3); Eosinophils Percent Auto 0.8 % (0-4.4); Hematocrit 30.6 % (37.0-47.0); Hemoglobin 9.6 g/dL (12.0-15.0); Immature Granulocyte Absolute 0.04 K/mm3 (0.00-0.031); Immature Granulocyte Percent A 0.5 % (0-0.5); Lymphocytes Absolute Auto 1.48 K/mm3 (0.9-3.2); Lymphocytes Percent Auto 20.1 % (18.3-44.2); Mean Corpuscular HGB Conc 31.4 g/dl (32-36); Mean Corpuscular Hemoglobin 27.8 pg (26-34); Mean Corpuscular Volume 88.7 fl (80-100); Mean Platelet Volume 9.5 fl (7.4-10.4); Monocytes Absolute Auto 0.3 K/mm3 (0.1-0.6); Monocytes Percent Auto 4.2 % (2.6-8.5); Neutrophils Absolute Auto 5.5 K/mm3 (1.3-6.7); Neutrophils Percent Auto 74.1 % (45.5-73.1); Platelet Count Result 234 k/mm3 (150-375); Red Blood Count 3.45 M/mm3 (4.2-5.4); Red Cell Distribution Width 12.5 % (11.5-14.5); White Blood Count 7.4 K/mm3 (4.5-10.0)
[2023-04-19 12:16] LABS: Glucose 1 Hour PP 50gm Dose 131 mg/dL
[2023-04-19 13:00] LABS: HIV 1/2 Ab P24 Ag Result Negative (Negative)
== END 2023-04-19 10:22 | disposition home or self-care (01) ==
LOC: ANHLAB 10:22
PROVIDERS: Visit Provider Obstetrics & Gynecology
DX: Z34.90 Encounter for supervision of normal pregnancy, unspecified, unspecified trimester (principal); Z3A.00 Weeks of gestation of pregnancy not specified
CPT/HCPCS: 36415; 82947; 85025; 86703; G0432

== ENCOUNTER 2023-05-05 12:16 | Observation (INO) | payer MEDICAID, SELFPAY ==
[2023-05-05 12:46] VITALS: BP 109/56; PULSE 92
[2023-05-05 13:00] VITALS: BP 105/57; PULSE 92
[2023-05-05 13:15] VITALS: BP 107/56; PULSE 83
[2023-05-05 13:30] VITALS: BP 108/55; PULSE 89; TEMP 36.6
[2023-05-05 13:45] VITALS: BP 91/72; PULSE 89
[2023-05-05 13:47] LABS: Appearance Urine Clear (Clear); Bacteria Urine 1+ /hpf; Bilirubin Urine Negative (Negative); Blood Urine Negative (Negative); Color Urine Yellow (Yellow); Glucose Urine UA Negative (Negative); Ketones Urine Trace mg/dL (Negative); Leukocyte Esterase Ur 2+ LEU/UL (Negative); Nitrate Urine Negative (Negative); Non Pathogenic Casts 0-2; Protein Urine Negative (Negative); RBC Urine 0-2 /hpf (0-2); Specific Grav Ur 1.005 (1.001-1.035); Squamous Epithelial Cell Urine Few /hpf (Few); Urobilinogen Urine 0.2 mg/dL (<2.0)
[2023-05-05 14:03] VITALS: BMI 25.4
--- NOTE | 2023-05-05 14:03 | OBADM ---
This patient, Janet Dave, admitted to the OB room OB Post 111 for observation. Patient/family oriented to hospital policies and general routines including ID bracelet, bed and alarms, visiting hours, pain management, procedures, bathroom and other care routines, personal items, smoking policy, room service/diet, and visiting hours. Patient/Family are encouraged to report perceived risks to care and to ask questions if they do not understand what they are told or what they should do.
[2023-05-05 14:10] LABS: Add Urine Microscopic? YES
--- NOTE | 2023-05-06 09:17 | PM.OBTRLD ---
OB - Triage/Final Diagnosis Visit Information Date of evaluation: 05/05/23 Reason for evaluation: threatened labor Comments/Additional reasons for admission: I have assessed the risk for this patient, Janet Hartman Tenzin, and determined that she would benefit from observation care. Evaluation Laboratory results: Laboratory Tests 05/05/23 13:06 Urine Color Yellow Urine Appearance Clear Urine pH 7.0 Ur Specific [place] 1.005 Urine Protein Negative Urine Glucose (UA) Negative Urine Ketones Trace H Ur Blood (Man) Negative Urine Nitrate Negative Urine Bilirubin Negative Urine Urobilinogen 0.2 Leukocyte Esterase Rfl 2+ H Urine RBC 0-2 Urine WBC 6-10 H Ur Squamous Epith Cells Few Urine Bacteria 1+ H Urine Casts 0-2 Vital signs: Vital Signs - 24 hr 05/05/23 12:46 05/05/23 13:00 05/05/23 13:15 Temperature Pulse Rate 92 92 83 Blood Pressure 109/56 L 105/57 L 107/56 L 05/05/23 13:30 05/05/23 13:45 Temperature 97.9 F Pulse Rate 89 89 Blood Pressure 108/55 L 91/72 L
== END 2023-05-05 15:03 | disposition home or self-care (01) ==
PROVIDERS: Admitting Provider Student in an Organized Health Care Education/Training Program; Visit Provider Student in an Organized Health Care Education/Training Program
DX: O47.03 False labor before 37 completed weeks of gestation, third trimester (principal); Z3A.30 30 weeks gestation of pregnancy
CPT/HCPCS: 81001; 87086; G0378; G0379

== ENCOUNTER 2023-06-16 14:26 | Observation (INO) | payer OTHER, SELFPAY ==
[2023-06-16 14:45] VITALS: BP 119/62; PULSE 68
[2023-06-16 15:00] VITALS: BP 108/71; PULSE 69
[2023-06-16 16:00] VITALS: BP 110/67; PULSE 69
--- NOTE | 2023-06-17 12:06 | PM.OBTRLD ---
OB - Triage/Final Diagnosis Visit Information Date of evaluation: 06/16/23 Reason for evaluation: threatened labor Comments/Additional reasons for admission: I have assessed the risk for this patient, Janet Dave, and determined that she would benefit from observation care. Evaluation Vital signs: Vital Signs - 24 hr 06/16/23 14:45 06/16/23 15:00 06/16/23 16:00 Pulse Rate 68 69 69 Blood Pressure 119/62 108/71 110/67
== END 2023-06-16 17:15 | disposition home or self-care (01) ==
PROVIDERS: Admitting Provider Student in an Organized Health Care Education/Training Program; Visit Provider Student in an Organized Health Care Education/Training Program
DX: O47.03 False labor before 37 completed weeks of gestation, third trimester (principal); Z3A.36 36 weeks gestation of pregnancy
CPT/HCPCS: G0378; G0379

== ENCOUNTER 2023-06-29 09:18 | Inpatient (IN) | payer OTHER, SELFPAY ==
[2023-06-29] VITALS (98 sets, daily range): BP systolic 82–132; BP diastolic 42–83; PULSE 51–129; RESP 16–18; TEMP 36.6–36.8; O2SAT 79–100; BMI 26.6
--- NOTE | 2023-06-29 13:43 | LDADM ---
This patient, Janet Dave, was admitted to Labor/Delivery/Recovery 106 on 06/29/23 at 09:18. Plans for labor, pain management and were discussed with patient. Patient/family oriented to hospital policies and general routines including ID bracelet, bed and alarms, visiting hours, pain management, procedures, bathroom and other care routines, personal items, smoking policy, room service/diet and guest tray routines, infant security routines, and visiting hours. Patient/Family are encouraged to report perceived risks to care and to ask questions if they do not understand what they are told or what they should do. See OBIX for further documentation.
--- NOTE | 2023-06-29 13:45 | WPDHPUPDATE1 ---
History and Physical Update Update Date/Time: 06/29/23 13:45 28-year-old who presents with complaint of contractions at 38 weeks 4 days. Cervix was 2/50/3 and office 2 days ago, cervix now 4.5/ 70/-3 History and Physical has been reviewed, including an updated exam of the patient. There are NO changes in the patient's condition. Risks, benefits, and alternatives have been discussed and questions answered. Patient agrees to proceed with procedure. A/P: patient likely in late labor Admit to L&D Routine admission orders labs reviewed Rh positive GBS negative Continuous external monitoring Will plan for expectant management Will augment with AROM and Pitocin as indicated
[2023-06-29 14:22] LABS: Basophils Percent Auto 0.5 % (0.2-1.2); Eosinophils Absolute Auto 0.1 K/mm3 (0-0.3); Eosinophils Percent Auto 0.6 % (0-4.4); Hematocrit 32.4 % (37.0-47.0); Hemoglobin 9.9 g/dL (12.0-15.0); Immature Granulocyte Absolute 0.03 K/mm3 (0.00-0.031); Immature Granulocyte Percent A 0.4 % (0-0.5); Lymphocytes Absolute Auto 1.98 K/mm3 (0.9-3.2); Lymphocytes Percent Auto 24.3 % (18.3-44.2); Mean Corpuscular HGB Conc 30.6 g/dl (32-36); Mean Corpuscular Hemoglobin 25.2 pg (26-34); Mean Corpuscular Volume 82.4 fl (80-100); Mean Platelet Volume 10.9 fl (7.4-10.4); Monocytes Absolute Auto 0.4 K/mm3 (0.1-0.6); Monocytes Percent Auto 4.9 % (2.6-8.5); Neutrophils Absolute Auto 5.7 K/mm3 (1.3-6.7); Neutrophils Percent Auto 69.3 % (45.5-73.1); Platelet Count Result 231 k/mm3 (150-375); Red Blood Count 3.93 M/mm3 (4.2-5.4); White Blood Count 8.2 K/mm3 (4.5-10.0)
[2023-06-29 16:00] LABS: Rapid Plasma Reagin Non-Reactive (NonReactive)
[2023-06-29] MEDS: LACTATED RINGERS 1,000 ML 999 ML IV CONT (16:54)
--- NOTE | 2023-06-29 17:17 | WPDANESEPPF ---
Anes - Initial Pre Proc Eval Procedure: labor epidural Date/Time: 06/29/23 17:17 Surgeon: Lobito Davey MD Pre Op Diagnosis: labor pain Pre Op Diagnosis: labor Patient Data Age: 28 Gender: F Height: 1.6 m Weight: 68.1 kg Last Vital Signs Temp 36.8 C 06/29/23 16:33 Pulse 74 06/29/23 17:16 Resp 18 06/29/23 16:33 BP 119/65 06/29/23 17:16 Pulse Ox 94 06/29/23 17:12 O2 Del Method Room Air 06/29/23 13:39 Allergies Allergy/AdvReac Type Severity Reaction Status Date / Time Iodinated Contrast Media Allergy Severe Anaphylaxis Verified 06/27/23 14:00 Latex, Natural Rubber Allergy Severe Hives Verified 06/27/23 14:00 Home Medications Medication Instructions Recorded Confirmed Type ondansetron 4 mg disintegrating 4 mg PO Q6H PRN nausea and 03/07/23 06/29/23 Rx tablet vomiting #60 tabs ferrous sulfate 325 mg (65 mg 325 mg PO BID 05/11/23 06/29/23 History iron) tablet Laboratory Tests 06/29/23 14:15 WBC 8.2 K/mm3 (4.5-10.0) RBC 3.93 L M/mm3 (4.2-5.4) Hgb 9.9 L g/dL (12.0-15.0) Hct 32.4 L % (37.0-47.0) MCV 82.4 fl (80-100) MCH 25.2 L pg (26-34) MCHC 30.6 L g/dl (32-36) RDW 14.0 % (11.5-14.5) Plt Count 231 k/mm3 (150-375) MPV 10.9 H fl (7.4-10.4) Immature Gran % (Auto) 0.4 % (0-0.5) Neut % (Auto) 69.3 % (45.5-73.1) Lymph % (Auto) 24.3 % (18.3-44.2) Butts % (Auto) 4.9 % (2.6-8.5) Eos % (Auto) 0.6 % (0-4.4) Baso % (Auto) 0.5 % (0.2-1.2) Lymph # (Auto) 1.98 K/mm3 (0.9-3.2) Butts # (Auto) 0.4 K/mm3 (0.1-0.6) Eos # (Auto) 0.1 K/mm3 (0-0.3) Baso # (Auto) 0.0 K/mm3 (0.0-0.1) Abs Immat Gran (auto) 0.03 K/mm3 (0.00-0.031) Absolute Neuts (auto) 5.7 K/mm3 (1.3-6.7) Absolute Nucleated RBC 0.0 K/mm3 (0.0-0.012) Nucleated RBC % 0.0 % (0.0-0.2) RPR Non-reactive (NonReactive) Blood Type A Positive Antibody Screen Negative Patient hx anesthesia problems: none Family hx anesthesia problems: none Results Review: All pre-operative results and documents have been reviewed as part of the pre-operative evaluation. [facility] Past Medical History Medical History Encounter for screening examination for sexually transmitted disease Endometriosis Ovarian cyst Vaginal discharge Surgical History Surgical History H/O removal of cyst 2019 ovarian cyst Family History Family History Sibling Deafness in left ear Grandparent Diabetes mellitus High cholesterol Heart disease Hypertension Sibling Asthma Social History Social History Smoking status: Never smoker Second hand tobacco smoke exposure: No Alcohol intake: never Substance use: never Substance use type: marijuana Do You Feel Safe in your Home?: Yes Lack of Transportation: No Lack of Food: Never True Current Housing: I Have Housing Concerned About Future Housing: No Difficulty Paying Gas/Electric Bills: No Difficulty Paying for Meds: No Currently Unemployed: No Education: High School Diploma/GED Difficulty w/ Childcare or Family Care: No Living arrangements: with family Occupation/Education: unemployed Additional occupation/education comments: stay at home Mom Gender identity (if verbalized by the patient): Female Sexual Orientation (if Verbalized by the Patient): Straight or Heterosexual Spiritual care concerns: No Anes - Eval Final PreProcedure Day of Procedure 06/29/23 17:17 Patient weight: overweight Heart: regular rate and rhythm Lungs: clear to auscultation Airway: Mallampati scale class II Neurological: alert and oriented Last oral intake: >/= 8 hours ASA classification: II Emergent:
[2023-06-29] MEDS: LACTATED RINGERS 1,000 ML 125 ML IV CONT (17:39)
[2023-06-29] MEDS: OXYTOCIN 30 UNITS/NS 500 ML 30 UNITS/500 ML BAG IV CONT (18:15)
[2023-06-29] MEDS: ONDANSETRON INJ 4 MG/2 ML VIAL IV PUSH (18:38)
[2023-06-29] MEDS: FAMOTIDINE 20 MG/2 ML VIAL IV PUSH (18:56)
[2023-06-29] MEDS: LORATADINE 5 MG TABLET PO (19:30)
[2023-06-29] MEDS: OXYTOCIN 30 UNITS/NS 500 ML 30 UNITS/500 ML BAG 999 UNITS IV CONT (20:58)
--- NOTE | 2023-06-29 21:00 | PM.OBPRVD ---
OB - Vaginal Delivery Note Procedure Delivery date: 06/29/23 Delivery augmentation: Rupture of Membranes and Pitocin Delivery monitor: External FHT and External Uterine Route of delivery: Episiotomy description: None Laceration Description: None Specimen: No Quantitative Blood Loss (ml): 200 Anesthesia type: Epidural Disposition: Floor Complications: No immediate complications Narrative: Patient pushed for a spontaneous vaginal delivery. The fetus was delivered atraumatically and placed on the maternal abdomen. The cord was clamped and cut after 1 minute of life. The cord was double clamped and cut and a segment of cord was collected for cord gases. Cord blood was collected for blood type and Coomb's testing. The placenta delivered spontaneously and was noted to be intact. The perineum was inspected and noted to be intact. The uterus was firm and good hemostasis was noted. Baby Date of : 06/29/23 Time of : 20:53 Weeks of gestation at delivery: 38 gender: Male presentation: vertex position: Left Occiput Anterior Placenta delivery description: Spontaneous Cord Vessel Description: 3 Vessels score one minute: 8 score five minutes: 9 AMG Delivery Billing Delivery Delivery: Delivery Charge
[2023-06-29] MEDS: OXYTOCIN 30 UNITS/NS 500 ML 30 UNITS/500 ML BAG 125 UNITS IV CONT (21:28)
[2023-06-29] MEDS: diphenhydrAMINE HCl INJ 50 MG/ML VIAL 25 MG IV PUSH (21:48)
--- NOTE | 2023-06-29 23:30 | OBPPTRN ---
Patient transferred to post room #291 via wheelchair. Support person present. Oriented to unit, room, information board, rooming in, admission packet and security measures. Patient verbalizes understanding.
[2023-06-30 00:10] VITALS: BP 119/69; PULSE 65; RESP 16; TEMP 36.8; O2SAT 100
[2023-06-30] MEDS: WITCH HAZEL 40 PADS 1 PAD TOPICAL ×2 (00:10→17:44)
[2023-06-30] MEDS: BENZOCAINE 20% AER SPR (*SP) 56 GM CAN 1 SPRAY (00:10)
[2023-06-30] MEDS: ACETAMINOPHEN 325 MG TABLET 650 MG PO ×3 (00:30→17:44)
[2023-06-30] MEDS: IBUPROFEN 600 MG TABLET PO ×4 (00:30→21:00)
[2023-06-30 04:30] VITALS: BP 103/54; PULSE 67; RESP 16; TEMP 37.1; O2SAT 100
[2023-06-30 04:49] LABS: Hematocrit 26.2 % (37.0-47.0)
--- NOTE | 2023-06-30 07:48 | PM.OBPNVD ---
OB - PN: Subj Subjective Date/time seen: 06/30/23 07:48 Patient comments: no complaints, pain well controlled and tolerating diet [place] feeding status: exclusively breast feeding Narrative: patient doing well this AM. No complaints. Pain is well controlled. She reports minimal bleeding. She is ambulating and voiding without difficulty. She is tolerating PO. She denies N/V, fever, chills. OB - PN: Obj Data Labs 06/30/23 04:11 Labs: Laboratory Results - last 24 hr 06/29/23 06/30/23 14:15 04:11 WBC 8.2 RBC 3.93 L Hgb 9.9 L 8.0 L Hct 32.4 L 26.2 L MCV 82.4 MCH 25.2 L MCHC 30.6 L RDW 14.0 Plt Count 231 MPV 10.9 H Immature Gran % (Auto) 0.4 Neut % (Auto) 69.3 Lymph % (Auto) 24.3 Power % (Auto) 4.9 Eos % (Auto) 0.6 Baso % (Auto) 0.5 Lymph # (Auto) 1.98 Power # (Auto) 0.4 Eos # (Auto) 0.1 Baso # (Auto) 0.0 Abs Immat Gran (auto) 0.03 Absolute Neuts (auto) 5.7 Absolute Nucleated RBC 0.0 Nucleated RBC % 0.0 RPR Non-reactive Blood Type A Positive Antibody Screen Negative OB - PN A/P Plan day: 1 Plan: routine care Comments: patient doing well H/H 8.0/26, asymptomatic. VSS. iron supplementaiton daily pt declines circumcision continue routine care Time Spent With Patient Time: Total time spent is greater than 50% in coordination of care (as documented) at patient's floor/unit and/or counseling patient: Time with patient: less than 15 minutes Review of Systems Review of Systems: All systems reviewed & are unremarkable except as noted in HPI and below Exam Const: General: comfortable and no acute distress Resp: Effort & Inspection: normal respiratory effort Cardio: Rate: regular rate GI: GI Palp: Yes Soft to palpation and No Tenderness to palpation present (GI) Auscultation: normal bowel sounds Other: fundus firm and below umbilicus. Psych: Affect: normal affect
--- NOTE | 2023-06-30 07:50 | PM.OBDSVD ---
DS: Admitting Diagnosis Discharge Date 07/01/23 Admitting Diagnosis intrauterine at term DS: Discharge Diagnosis Discharge Diagnosis (1) Normal vaginal delivery: Code(s): O80 - Encounter for full-term uncomplicated delivery Status: Acute OB - DS: Summary OB Procedures : None OB Procedures Intrapartum: Spontaneous Vag Delivery OB Procedures: : None Peripartum Data Laceration Description: None Episiotomy description: None Status at Discharge Functional status at discharge: independent ambulation Overall status at discharge: patient is back to baseline Time Spent with Patient Time attestation: Total time spent providing and/or coordinating discharge services: Time spent: Less than 30 minutes Exam Const: General: comfortable and no acute distress Resp: Effort & Inspection: normal respiratory effort Auscultation: clear to auscultation bilaterally Cardio: Rate: regular rate GI: GI Palp: Yes Soft to palpation Auscultation: normal bowel sounds Other: Fundus firm below umbilicus Psych: Appearance: grossly normal Mental Status: mental status grossly normal Affect: normal affect DS: Data Data Completed and Pending Labs on day of discharge: Labs from last 24 hours 06/30/23 06/29/23 04:11 14:15 WBC 8.2 RBC 3.93 L Hgb 8.0 L 9.9 L Hct 26.2 L 32.4 L MCV 82.4 MCH 25.2 L MCHC 30.6 L RDW 14.0 Plt Count 231 MPV 10.9 H Immature Gran % (Auto) 0.4 Neut % (Auto) 69.3 Lymph % (Auto) 24.3 [place] % (Auto) 4.9 Eos % (Auto) 0.6 Baso % (Auto) 0.5 Lymph # (Auto) 1.98 [place] # (Auto) 0.4 Eos # (Auto) 0.1 Baso # (Auto) 0.0 Abs Immat Gran (auto) 0.03 Absolute Neuts (auto) 5.7 Absolute Nucleated RBC 0.0 Nucleated RBC % 0.0 RPR Non-reactive Blood Type A Positive Antibody Screen Negative Discharge Plan Discharge Consulting providers: Lane Krishna; Carolyn Otero Discharging Clinician: Manuel Josue Patient Disposition: Home, Self-Care Activity: as tolerated and pelvic rest Diet: regular Discharge Instructions: Education: Mom and Baby Guide Given to: Mother Follow-Up: Call your delivering provider's office for an appointment to be seen in: 5 weeks Mom and baby should come to the [facility] for the follow-up appointment. Appointment Date/Time: July 02, 2023 at 10:00 am What to expect at your follow-up visit: Physical Assessment Call [phone] if you are unable to keep your appointment time. BREAST CARE: * Wear a snug supportive bra. * For engorgement discomfort: Breast Feeding: * Apply warm moist washcloths * Express milk as needed to relieve engorgement * Wear loose clothing * For sore nipples: * Identify correct latch-on * Apply warm moist washcloths before and after nursing * Air dry nipples after nursing * May apply Lansinoh cream to nipples EPISIOTOMY/PERINEAL CARE: * Until bleeding stops, use your shubham bottle after urinating * Change your pad frequently throughout the day * No tub baths until seen by your physician - You may shower ACTIVITY: * Rest as much as possible. * Do not exercise or lift anything heavier than your baby (such as laundry or other children.) * Avoid stairs or driving as much as possible. * Do not put anything into the vagina. No douching, tampons, or sexual activity until seen by physician. NOTIFY PHYSICIAN IF YOU HAVE ANY QUESTIONS OR IF ANY OF THE FOLLOWING SYMPTOMS OCCUR: * If your perineum becomes red, swollen, or more painful than what you have experienced in the hospital. * If your vaginal bleeding becomes foul smelling. * If your vaginal bleeding becomes more heavy than a period or if your bleeding changes from pink to bright red. However, you may pass an occasional walnut-sized clot once or twice for the first week . * If
[2023-06-30] MEDS: MULTIVIT/MIN/PREN/FOL AC/IRON TABLET 1 TAB PO (08:12)
[2023-06-30] MEDS: POLYSACCHARIDE IRON COMPLEX 150 MG CAPSULE PO ×2 (08:12→17:43)
[2023-06-30] MEDS: DOCUSATE SODIUM 100 MG CAPSULE PO ×2 (08:12→17:44)
--- NOTE | 2023-06-30 08:39 | WPDANLDPN2 ---
Anes-Prog Note L&D Date/Time: 06/30/23 08:39 Comfortable throughout: labor and delivery Neuraxial method: epidural Epidural/Spinal procedure site: clean & non-tender Neuro status: Neuro function grossly intact. Cardiovascular status: normal Respiratory status: normal Airway patency: baseline Mental status: baseline Post-Op hydration status: normal Vital Signs: Last Vital Signs Temp 37.1 C 06/30/23 04:30 Pulse 67 06/30/23 04:30 Resp 16 06/30/23 04:30 BP 103/54 L 06/30/23 04:30 Pulse Ox 100 06/30/23 04:30 O2 Del Method Room Air 06/30/23 04:30 Pain score (VAS): 2 I/O: Intake & Output 06/29/23 06/30/23 06/30/23 23:59 07:59 15:59 Intake Total 1000 Balance 1000 Post-procedural complaints: none Patient feedback: Patient satisfied with anesthetic care.
[2023-06-30 08:50] VITALS: BP 102/67; PULSE 83; RESP 18; TEMP 36.9; O2SAT 100
[2023-06-30 12:47] VITALS: BP 107/61; PULSE 70; RESP 16; TEMP 37.1; O2SAT 100
--- NOTE | 2023-06-30 17:26 | PC.NURSE ---
[id number] Mother verbalizes she is able to independently latch with appropriate positioning and alignment. She denies any nipple discomfort and is responsively . is currently meeting outcomes for weight, output, jaundice, blood sugar and feeding frequencies of 8-12 times in 24 hours. Mother declines any additional assistance or education at this time. Mother is encouraged to call for assistance if her infant doesn?t latch, pain with latching, questions or concerns. Mother voiced understanding of information shared along with the mom/baby guide for an additional resource. Reported to the Primary RN.
[2023-06-30 21:00] VITALS: BP 113/64; PULSE 77; RESP 16; TEMP 36.7; O2SAT 100
[2023-07-01 05:00] VITALS: BP 115/57; PULSE 77; RESP 16; TEMP 36.9; O2SAT 100
[2023-07-01] MEDS: ACETAMINOPHEN 325 MG TABLET 650 MG PO ×2 (05:00→12:43)
[2023-07-01 07:40] VITALS: BP 111/56; PULSE 85; RESP 16; TEMP 37.4; O2SAT 100
[2023-07-01] MEDS: POLYSACCHARIDE IRON COMPLEX 150 MG CAPSULE PO (08:48)
[2023-07-01] MEDS: DOCUSATE SODIUM 100 MG CAPSULE PO (08:48)
[2023-07-01] MEDS: IBUPROFEN 600 MG TABLET PO (08:49)
[2023-07-01] MEDS: MULTIVIT/MIN/PREN/FOL AC/IRON TABLET 1 TAB PO (08:49)
--- NOTE | 2023-07-01 09:36 | P.DS_ITS ---
DS: Admitting Diagnosis Discharge Date 07/01/2023 Admitting Diagnosis DS: Discharge Diagnosis Discharge Diagnosis (1) , delivered: Code(s): O80 - Encounter for full-term uncomplicated delivery Status: Acute OB - DS: Summary OB Procedures : None OB Procedures Intrapartum: Spontaneous Vag Delivery OB Procedures: : None Peripartum Data Laceration Description: None Episiotomy description: None Time Spent with Patient Time attestation: Total time spent providing and/or coordinating discharge services: Discharge Plan Discharge Discharging Clinician: Manuel Josue Patient Disposition: Home, Self-Care Activity: as tolerated and pelvic rest Diet: regular Patient Instructions: Antibiotic Form, Vaginal Delivery (DC) Stand Alone Forms: General Discharge Information Follow-up/Referrals: Lobito Davey MD [Physician] - Discharge Medications: New acetaminophen 500 mg tablet 500 mg PO Q6H PRN (Reason: pain) Qty: 30 0RF ibuprofen 600 mg tablet 600 mg PO Q6H PRN (Reason: pain) Qty: 30 0RF Continued ferrous sulfate 325 mg (65 mg iron) tablet 325 mg PO BID ondansetron 4 mg tablet,disintegrating 4 mg PO Q6H PRN (Reason: nausea and vomiting) Qty: 60 2RF Date of admission: 06/29/23 09:18 Primary Care Provider: PHYSICIAN,CALCULUS PROFESSOR Admitting Provider: Lobito Davey Attending physician on admission: Lobito Davey Condition: Stable
--- NOTE | 2023-07-01 15:46 | PC.NURSE ---
[id number] Mother demonstrated that she is able to independently latch optimally to the left breast using the cradle hold. She denies any nipple discomfort and is responsively . Reminded mother to use good handwashing technique to prevent infection. Mother is feeding appropriately for growth of and understands stimulating infant to eat if needed. has had appropriate feedings in the last 24 hours meets the outcomes for weight, output, blood sugar and jaundice at this time. Mother states she is confident to continue effectively her infant at home, when to call for assistance, denies any additional assistance or education at this time. Reinforced understanding of milk production, transition of milk, signs of adequate intake, transition of stool, prevention/relief of engorgement, plugged ducts, mastitis, community resources, and when to call a provider using the resource of the mom and baby guide. Mother voiced understanding of the education shared. Mother declines any additional assistance or education at this time. Reported successful latch to Dr. Clement.
[2023-07-02 10:32] VITALS: BP 123/73; PULSE 94; RESP 18; TEMP 36.7; O2SAT 100
== END 2023-07-01 13:05 | disposition home or self-care (01) | DRG 807 ==
LOC: ANHLDR 13:47 → ANHOB2 06-30 07:51 → ANHLDR 07-04 08:52 → ANHOB2 07-04 08:52
PROVIDERS: Admitting Provider Student in an Organized Health Care Education/Training Program; Visit Provider Obstetrics & Gynecology
DX: O98.82 Other maternal infectious and parasitic diseases complicating childbirth (principal); Z37.0 Single live birth; Z3A.38 38 weeks gestation of pregnancy
CPT/HCPCS: 36415; 85014; 85018; 85025; 86592; 86850; 86900; 86901; A9270; J1200; J2405; J2590; J2795; J7120

== ENCOUNTER 2023-09-22 09:48 | Emergency (ER) | payer OTHER, SELFPAY ==
--- NOTE | 2023-09-22 10:00 | ED.GENADULT ---
HPI - General Adult General Chief complaint: Upper Respiratory Infection Stated complaint: SORE THROAT/EARACHE/EYES Source: patient, RN notes reviewed and old records reviewed Mode of arrival: ambulatory Limitations: no limitations History of Present Illness HPI narrative: 28-year-old female presents to [facility] with complaints sore throat that started 3 days ago. Patient states does have some sinus congestion patient also has bilateral ear pressure, and bilateral eye redness, drainage, a.m. adding. Patient states he is taking Tylenol only due to . Related Data Allergies Allergy/AdvReac Type Severity Reaction Status Date / Time Iodinated Contrast Media Allergy Severe Anaphylaxis Verified 07/27/23 10:54 Latex, Natural Rubber Allergy Severe Hives Verified 07/27/23 10:54 Review of Systems Constitutional: Constitutional: Reports no additional constitutional complaints, Denies body ache(s), Denies chills, Denies fatigue, Denies fever(s) and Reports headache(s) Eyes: Eyes: Reports no additional eye complaints and Denies blurry vision ENT: Reports system reviewed and no additional complaints, except as documented, Denies vertigo, Denies dizziness, Denies ear discharge, Denies otalgia, Denies facial pain, Denies headache(s), Denies nasal congestion, Reports nasal discharge, Denies sinus pain, Denies sinus pressure and Reports sore throat Cardiovascular: Cardiovascular: Reports no additional cardiovascular complaints, Denies chest pain, Denies chest pain at rest, Denies rapid heart rate and Denies dyspnea Respiratory: Respiratory: Reports no additional respiratory complaints, Denies chest congestion, Denies cough, Denies pain on inspiration, Denies pain with cough and Denies dyspnea Gastrointestinal: Gastrointestinal: Denies abdominal pain, Denies diarrhea, Denies nausea and Denies vomiting Integumentary/Breasts: Skin/Breast: Denies rash Neurologic: Reports system reviewed and no additional complaints, except as documented, Denies vertigo, Denies dizziness and Denies headache(s) Endocrine: Endocrine: Denies fatigue PMFSH Past Medical History Medical History Encounter for screening examination for sexually transmitted disease Endometriosis Ovarian cyst Vaginal discharge Surgical History Surgical History H/O removal of cyst 2019 ovarian cyst Family History Family History Sibling Deafness in left ear Grandparent Diabetes mellitus High cholesterol Heart disease Hypertension Sibling Asthma Social History Social History Smoking status: Never smoker Second hand tobacco smoke exposure: No Alcohol intake: never Substance use: never Substance use type: marijuana Do You Feel Safe in your Home?: Yes Lack of Transportation: No Lack of Food: Never True Current Housing: I Have Housing Concerned About Future Housing: No Difficulty Paying Gas/Electric Bills: No Difficulty Paying for Meds: No Currently Unemployed: No Education: High School Diploma/GED Difficulty w/ Childcare or Family Care: No Living arrangements: with family Occupation/Education: unemployed Additional occupation/education comments: stay at home Mom Gender identity (if verbalized by the patient): Female Sexual Orientation (if Verbalized by the Patient): Straight or Heterosexual Spiritual care concerns: No Comments At the time of my signature, I reviewed and agree with the nursing past medical, surgical, social, and family history. There is no relevant family history pertinent to the patient complaint. Exam Const: General: cooperative, healthy appearing, no acute distress and well nourished Nutritional Appearance: well nourished Orientation/consciousness: patient or
[2023-09-22 10:06] VITALS: BP 105/86; PULSE 87; RESP 16; TEMP 36.6; O2SAT 100
== END 2023-09-22 10:20 | disposition home or self-care (01) ==
PROVIDERS: Emergency Provider Registered Nurse
DX: H10.33 Unspecified acute conjunctivitis, bilateral (principal); J02.9 Acute pharyngitis, unspecified; N80.9 Endometriosis, unspecified
CPT/HCPCS: 87081; 87880; 99213; G0463